=== PATIENT | male | born 1985 ===

== ENCOUNTER 2016-09-11 07:46 | Emergency (ER) | payer OTHER ==
--- NOTE | 2016-09-11 08:26 | ED NURSING NOTES ---
Clinical Report - Nurses [place] [address] [place] [address] 09/11/2016 7:47 [id number] Triage time 07:49. Acuity: LEVEL 3. Chief Complaint: INJURY TO LEFT FOOT. JD COMA SCORE: Jd Coma Scale: 15- eyes open spontaneously (4); best verbal response- oriented x 4 (5); best motor response- obeys commands (6). --08:03 Claudia Evans R.N. 07:49 09/11/16. BP: 108/72. HR: 81. RR: 22. O2 saturation: 100% on room air. Temp: 97.8 F (oral). Pain level now: 03/23. --08:03 Claudia Evans R.N. Weight: 86.1 kg. Height/Length: 69 inches. BMI: 28.1. --07:54 Claudia Evans R.N. Medications None. --07:55 Claudia Evans R.N. Medication/allergy information source: the patient. --08:03 Claudia Evans R.N. Allergies No Known Drug Allergy. --07:56 Claudia Evans R.N. History Arrived by private vehicle. Historian: patient. Accompanied by friend. Primary physician (none). This occurred just prior to arrival. Occurred at work. Mechanism of injury: a blow (runover by a forklift). ( eat:0600; drink - 0600). He has had trouble walking. 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 PAST MEDICAL HX: Last tetanus: (maybe more than a year). Tetanus immunization status is not unknown. SOCIAL HX: Smoker- current status unknown (no). Occasional alcohol use. No drug use. FALL RISK ASSESSMENT: Fall risk assessment completed. No fall risk identified. FUNCTIONAL ASSESSMENT: Functional assessment performed: independent with the activities of daily living; mobility impairment present- this mobility impairment is a new problem. LEARNING NEEDS ASSESSMENT: A learning needs assessment was performed. Factors affecting the patient's ability to learn include communication / language barriers. --08:03 Claudia Evans R.N. PROBLEMS: no known problems. ADDITIONAL SURGERIES: no known surgeries. Assessment GENERAL / NEURO / PSYCH: The patient is awake and alert, appears in pain and is oriented and cooperative. He has good eye contact. RESPIRATORY: Respirations not labored. SKIN: Skin is warm and dry. --08:03 Claudia Evans R.N. Interventions ID band on patient. To treatment room. --08:03 Claudia Evans R.N. PHYSICAL ASSESSMENT 08:05 09/11/16. To room via wheelchair. Patient gowned. GENERAL / NEURO / PSYCH: Oriented X 4. Appears in pain and in distress. EXTREMITIES: Left foot: swelling and erythema. SKIN: Skin is warm and dry. Bruises noted. --08:05 Claudia Evans R.N. NURSING PROGRESS NOTES 08:06 09/11/16. Cold pack applied. Extremity elevated. Call light placed in reach. Side rails up x 1. Bed placed in lowest position. Brakes of bed on. --08:06 Claudia Evans R.N. 08:06 09/11/16. Portable x-ray performed. --08:06 Claudia Evans R.N. 08:09 09/11/2016 Site #1 started via IV in the left forearm with an 20g angiocath; one attempt. Blood drawn: rainbow set. Labeled in the presence of the patient and sent to the lab. Saline lock flushed with 10 mL saline. --08:14 Amberly Randall R.N. 09:00 09/11/2016 Toradol IVP 30 mg given over 2 minute(s) via site #1. Allergies verified and confirmed 5 rights. IV patency established. IV site checked: no pain, redness, or swelling. IV flushed thoroughly pre- and post-medication administration. IVP given by RN. --09:10 Claudia Evans R.N. 09:03 09/11/2016 Dilaudid (HYDROmorphone HCl PF) IVP 0.5 mg given over 1 minute(s) via site #1. Allergies verified, confirmed 5 rights and sedative warning given to the patient. IV patency established. IV site checked: no pain, redness, or swelling. IV flushed thoroughly pre- and post-medication administration. IVP given by RN (pt initially refused this med because he was going to have to ddrive home from the workplace, after further conversation with his coworker, he decided to take it and have someone pick him up from work). --09:13 Claudia Evans R.N. 09:05 09/11/2016 Site #1 removed upon discharge. Catheter intact. Bandaid applied. --09:13 Claudia Evans R.N. 09:05. The patient is calm. Overall patient status is the same- he states feels the same. GENERAL / NEURO / PSYCH: Alert. Oriented X 4. RESPIRATORY: No respiratory distress. CVS: Capillary refill less than 2 seconds. SKIN: Skin is warm and dry. --09:18 Claudia Evans R.N. 09:05 language line was used twice at the bedside, for this pt. --09:18 Claudia Evans R.N. 09:05 09/11/2016 IV Saline Lock Drip IV Discontinued: upon discharge. --09:19 Claudia Evans R.N. DISPOSITION / DISCHARGE Departure time: 904. Condition at departure: improved and stable. Fall risk assessment completed. Risk factors identified include patient impairment of mobility. No learning barriers present. Discharge instructions provided and reviewed with the patient. Reviewed medication(s). Prescription(s) given to the patient. Work note given. Patient verbalized understanding. Written instructions provided in [place] and [place]. The patient was discharged home and accompanied by applied exercise physiologist. He left the Emergency Department ambulatory and via private vehicle. Manager Room driving. --09:16 Claudia Evans R.N. 09:05 09/11/16. BP: 126/69. HR: 73. RR: 16. O2 saturation: 96% on room air. Pain level now: 10/21. --09:16 Claudia Evans R.N. Locked/Released at 09/11/2016 9:19 by Claudia Evans R.N.
--- NOTE | 2016-09-11 08:26 | ED CLINICAL REPORT ---
Clinical Report - Physicians/Mid Levels [place] [address] [place] [address] 09/11/2016 7:47 Patient: COSMO ROCHE Time Seen: 07:53. Arrived- By private vehicle. Historian- patient. HISTORY OF PRESENT ILLNESS Chief Complaint: Injury to the left foot. The injury happened just prior to arrival. The patient sustained a crush injury (forklift ran over foot). Occurred at work. Patient is experiencing moderate pain. No other injury. REVIEW OF SYSTEMS The patient complains of pain on weight bearing. He has had swelling. No tingling, weakness, numbness, suspected foreign body or skin laceration. All systems otherwise negative, except as recorded above. PAST HISTORY Problems: no known problems. Additional Surgeries: no known surgeries. Medications: None. Allergies: No Known Drug Allergy. SOCIAL HISTORY Never smoker. No alcohol use or drug use. ADDITIONAL NOTES The nursing notes have been reviewed. PHYSICAL EXAM Appearance: Alert. Oriented X3. No acute distress. Head: Head atraumatic. Eyes: Pupils equal, round and reactive to light. Eyes normal inspection. ENT: Nose normal. Neck: Normal inspection. CVS: Pulses normal. Respiratory: No respiratory distress. Back: ROM normal. Skin: Skin intact. Skin warm and dry. Extremities: Left foot: moderate tenderness and swelling and small ecchymosis of the dorsal medial aspect of the mid foot. Limited weight bearing secondary to pain. Neurovascular intact distally. No laceration, abrasion, puncture wound, foreign body or deformity. No ankle injury. Foot and ankle exam otherwise negative. Extremities otherwise negative. Neuro, Vascular and Tendons: Vascular status intact. Sensation intact. Motor intact. Tendon function intact. Gait: Gait not tested due to pain. Neuro: No motor deficit. No sensory deficit. (Grossly oriented.). LABS, X-RAYS, AND EKG Lt Foot X-ray: No fracture. Normal alignment. No bony lesion, air in the soft tissue or foreign body. Joint spaces normal. Soft tissue swelling. Views: 3 view foot series. Technique: good. The X-rays were independently viewed by me and interpreted contemporaneously by me. Prior films were not available for comparison. Pulse Oximetry: 09/11/2016 07:49 O2 saturation: 100%. (FIO2 - room air). Interpretation: normal. PROGRESS AND PROCEDURES Course of Care: Pt was treated symptomatically, and x-ray was performed, showing no fracture. Pt was given crutches for comfort. Patient counseled in person regarding the patient's stable condition, test results, diagnosis and need for follow-up. Old medical records reviewed. Disposition: Discharged. CLINICAL IMPRESSION Contusion to the left foot. Crush injury to the left foot. INSTRUCTIONS Apply ice for 20 minutes three times a day as needed and until better. Don't apply ice directly to skin and don't use while asleep. Use crutches as needed and until better. Elevate affected areas above chest level as needed and until better. You may walk and bear weight as tolerated. Do not work (09/11-09/14). Warnings: GENERAL WARNINGS: Return or contact your physician immediately if your condition worsens or changes unexpectedly, if not improving as expected, or if other problems arise. Prescription Medications: Hydrocodone/APAP 5mg / 325mg: take 1-2 orally every 6 hours as needed for pain. Dispense fifteen (15). No refill. Follow-up: Follow up with your doctor as needed. Understanding of the discharge instructions verbalized by patient. (Electronically signed by Kary Lam MD 09/18/2016 10:10)
--- NOTE | 2016-09-11 08:26 | ED ORDER SUMMARY ---
..... Patient: COSMO ROCHE OrderSheet [facility] VisitID: [id number] [place] [address] 31y, M Registration Date/Time: 09/11/2016 ORDER SHEET Weight: 86.1 kg Allergies: No Known Drug Allergy GENERAL ORDERS: Foot 3V Left Urgent (07:53 09/11/2016 Nataly OATES) (Ack 8:03 OHernandez) (8:32 Herrera R.N.) Crutches (08:19 09/11/2016 Nataly OATES) (9:13 Herrera R.N.) MEDICATION ORDERS: IV FLUIDS: IV Saline Lock (08:13 09/11/2016 Vicky R.N. verbal order read back to Nataly OATES) (8:14 LShectorivan R.N.) Toradol IV 30 mg (NOW) (08:43 09/11/2016 Nataly OATES) (9:10 Herrera R.N.) Dilaudid IV 0.5 mg (HIGH ALERT MEDICATION, NOW) (08:43 09/11/2016 Nataly OATES) (9:13 Herrera R.N.) ORDER SHEET NOTES: [Electronically signed by Claudia Evans R.N. (09:19 09/11/2016)] [Electronically signed by Kary Lam MD (10:10 09/18/2016)] [Electronically locked/signed by Claudia Evans R.N. (09:19 09/11/2016)]
--- NOTE | 2016-09-11 08:26 | ED ORDER SUMMARY ---
..... Patient: COSMO ROCHE OrderSheet [facility] VisitID: [id number] [place] [address] 31y, M Registration Date/Time: 09/11/2016 ORDER SHEET Weight: 86.1 kg Allergies: No Known Drug Allergy GENERAL ORDERS: Foot 3V Left Urgent (07:53 09/11/2016 Nataly OATES) (Ack 8:03 OHernandez) (8:32 Herrera R.N.) Crutches (08:19 09/11/2016 Nataly OATES) (9:13 Herrera R.N.) MEDICATION ORDERS: IV FLUIDS: IV Saline Lock (08:13 09/11/2016 Vicky R.N. verbal order read back to Nataly OATES) (8:14 LShectorivan R.N.) Toradol IV 30 mg (NOW) (08:43 09/11/2016 Nataly OATES) (9:10 Herrera R.N.) Dilaudid IV 0.5 mg (HIGH ALERT MEDICATION, NOW) (08:43 09/11/2016 Nataly OATES) (9:13 Herrera R.N.) ORDER SHEET NOTES: [Electronically signed by Claudia Evans R.N. (09:19 09/11/2016)] [Electronically signed by Kary Lam MD (10:10 09/18/2016)] [Electronically locked/signed by Claudia Evans R.N. (09:19 09/11/2016)]
--- NOTE | 2016-09-11 08:26 | ED NURSING NOTES ---
Clinical Report - Nurses [place] [address] [place] [address] 09/11/2016 7:47 [id number] Triage time 07:49. Acuity: LEVEL 3. Chief Complaint: INJURY TO LEFT FOOT. JD COMA SCORE: Jd Coma Scale: 15- eyes open spontaneously (4); best verbal response- oriented x 4 (5); best motor response- obeys commands (6). --08:03 Claudia Evans R.N. 07:49 09/11/16. BP: 108/72. HR: 81. RR: 22. O2 saturation: 100% on room air. Temp: 97.8 F (oral). Pain level now: 03/23. --08:03 Claudia Evans R.N. Weight: 86.1 kg. Height/Length: 69 inches. BMI: 28.1. --07:54 Claudia Evans R.N. Medications None. --07:55 Claudia Evans R.N. Medication/allergy information source: the patient. --08:03 Claudia Evans R.N. Allergies No Known Drug Allergy. --07:56 Claudia Evans R.N. History Arrived by private vehicle. Historian: patient. Accompanied by friend. Primary physician (none). This occurred just prior to arrival. Occurred at work. Mechanism of injury: a blow (runover by a forklift). ( eat:0600; drink - 0600). He has had trouble walking. 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 PAST MEDICAL HX: Last tetanus: (maybe more than a year). Tetanus immunization status is not unknown. SOCIAL HX: Smoker- current status unknown (no). Occasional alcohol use. No drug use. FALL RISK ASSESSMENT: Fall risk assessment completed. No fall risk identified. FUNCTIONAL ASSESSMENT: Functional assessment performed: independent with the activities of daily living; mobility impairment present- this mobility impairment is a new problem. LEARNING NEEDS ASSESSMENT: A learning needs assessment was performed. Factors affecting the patient's ability to learn include communication / language barriers. --08:03 Claudia Evans R.N. PROBLEMS: no known problems. ADDITIONAL SURGERIES: no known surgeries. Assessment GENERAL / NEURO / PSYCH: The patient is awake and alert, appears in pain and is oriented and cooperative. He has good eye contact. RESPIRATORY: Respirations not labored. SKIN: Skin is warm and dry. --08:03 Claudia Evans R.N. Interventions ID band on patient. To treatment room. --08:03 Claudia Evans R.N. PHYSICAL ASSESSMENT 08:05 09/11/16. To room via wheelchair. Patient gowned. GENERAL / NEURO / PSYCH: Oriented X 4. Appears in pain and in distress. EXTREMITIES: Left foot: swelling and erythema. SKIN: Skin is warm and dry. Bruises noted. --08:05 Claudia Evans R.N. NURSING PROGRESS NOTES 08:06 09/11/16. Cold pack applied. Extremity elevated. Call light placed in reach. Side rails up x 1. Bed placed in lowest position. Brakes of bed on. --08:06 Claudia Evans R.N. 08:06 09/11/16. Portable x-ray performed. --08:06 Claudia Evans R.N. 08:09 09/11/2016 Site #1 started via IV in the left forearm with an 20g angiocath; one attempt. Blood drawn: rainbow set. Labeled in the presence of the patient and sent to the lab. Saline lock flushed with 10 mL saline. --08:14 Amberly Randall R.N. 09:00 09/11/2016 Toradol IVP 30 mg given over 2 minute(s) via site #1. Allergies verified and confirmed 5 rights. IV patency established. IV site checked: no pain, redness, or swelling. IV flushed thoroughly pre- and post-medication administration. IVP given by RN. --09:10 Claudia Evans R.N. 09:03 09/11/2016 Dilaudid (HYDROmorphone HCl PF) IVP 0.5 mg given over 1 minute(s) via site #1. Allergies verified, confirmed 5 rights and sedative warning given to the patient. IV patency established. IV site checked: no pain, redness, or swelling. IV flushed thoroughly pre- and post-medication administration. IVP given by RN (pt initially refused this med because he was going to have to ddrive home from the workplace, after further conversation with his coworker, he decided to take it and have someone pick him up from work). --09:13 Claudia Evans R.N. 09:05 09/11/2016 Site #1 removed upon discharge. Catheter intact. Bandaid applied. --09:13 Claudia Evans R.N. 09:05. The patient is calm. Overall patient status is the same- he states feels the same. GENERAL / NEURO / PSYCH: Alert. Oriented X 4. RESPIRATORY: No respiratory distress. CVS: Capillary refill less than 2 seconds. SKIN: Skin is warm and dry. --09:18 Claudia Evans R.N. 09:05 language line was used twice at the bedside, for this pt. --09:18 Claudia Evans R.N. 09:05 09/11/2016 IV Saline Lock Drip IV Discontinued: upon discharge. --09:19 Claudia Evans R.N. DISPOSITION / DISCHARGE Departure time: 904. Condition at departure: improved and stable. Fall risk assessment completed. Risk factors identified include patient impairment of mobility. No learning barriers present. Discharge instructions provided and reviewed with the patient. Reviewed medication(s). Prescription(s) given to the patient. Work note given. Patient verbalized understanding. Written instructions provided in [place] and [place]. The patient was discharged home and accompanied by esol teacher. He left the Emergency Department ambulatory and via private vehicle. Bank Boss driving. --09:16 Claudia Evans R.N. 09:05 09/11/16. BP: 126/69. HR: 73. RR: 16. O2 saturation: 96% on room air. Pain level now: 10/21. --09:16 Claudia Evans R.N. Locked/Released at 09/11/2016 9:19 by Claudia Evans R.N.
--- NOTE | 2016-09-11 10:52 | DIAGNOSTIC IMAGING REPORT ---
PROCEDURE: XR FOOT 3 VIEWS - LEFT INDICATION: TRAUMA/INJURY TECHNIQUE: Three views. COMPARISON: None. FINDINGS: Osseous structures and joint spaces are normal. IMPRESSION: 1. Normal left foot.
--- NOTE | 2016-09-18 10:10 | ED MAR SUMMARY ---
..... Medication Administration Record [facility] [address] [place] [address] Patient: COSMO ROCHE Visit ID: [id number] 31y, M Weight: 86.1 kg Height/Length: 69 in BMI: 28.1 ALLERGIES: No Known Drug Allergy Given 09:00 09/11/2016 Claudia Evans, RChristenN. Medication Administered: TORADOL [IVP], Dose: 30 mg IVP over 2 minute(s), Site: #1 left forearm. Medication Ordered: Toradol IV 30 mg (NOW). Given 09:03 09/11/2016 Claudia Evans, R.N. Medication Administered: DILAUDID [IVP] (HYDROMORPHONE HCL PF), Dose: 0.5 mg IVP over 1 minute(s), Site: #1 left forearm. Medication Ordered: Dilaudid IV 0.5 mg (HIGH ALERT MEDICATION, NOW).
--- NOTE | 2016-09-18 10:10 | ED MED RECONCILIATION SUMMARY ---
Patient: FINESSE ROCHEOLFO Medication Reconciliation Report [facility] VisitID: [id number] [address] [place] [address] 31y, M Registration Date/Time: 09/11/2016 Weight: 86.1 kg Height/Length: 69 in. BMI: 28.1 ALLERGIES: No Known Drug Allergy The patient's Home Medications are listed below: NONE. The source(s) of the original Home Medication information: patient The following Medications were given to the patient in the Emergency Department: Toradol [IVP] IVP 30 mg, administered: 09/11/2016 9:00:00 AM Dilaudid [IVP] IVP 0.5 mg, administered: 09/11/2016 9:03:00 AM The following Medications were prescribed to the patient: Hydrocodone/APAP 5mg / 325mg: take 1-2 orally every 6 hours as needed for pain. Dispense fifteen (15). No refill. -- Kary Lam MD
--- NOTE | 2016-09-18 10:10 | ED MAR SUMMARY ---
..... Medication Administration Record [facility] [address] [place] [address] Patient: COSMO ROCHE Visit ID: [id number] 31y, M Weight: 86.1 kg Height/Length: 69 in BMI: 28.1 ALLERGIES: No Known Drug Allergy Given 09:00 09/11/2016 Claudia Evans, RChristenN. Medication Administered: TORADOL [IVP], Dose: 30 mg IVP over 2 minute(s), Site: #1 left forearm. Medication Ordered: Toradol IV 30 mg (NOW). Given 09:03 09/11/2016 Claudia Evans, R.N. Medication Administered: DILAUDID [IVP] (HYDROMORPHONE HCL PF), Dose: 0.5 mg IVP over 1 minute(s), Site: #1 left forearm. Medication Ordered: Dilaudid IV 0.5 mg (HIGH ALERT MEDICATION, NOW).
--- NOTE | 2016-09-18 10:10 | ED DISCHARGE INSTRUCTIONS ---
Patient: COSMO ROCHE General Instructions [facility] VisitID: [id number] [place] [address] 31y, M Registration Date/Time: 09/11/2016 Contusion to the left foot. Crush injury to the left foot. INSTRUCTIONS Apply ice for 20 minutes three times a day as needed and until better. Don't apply ice directly to skin and don't use while asleep. Use crutches as needed and until better. Elevate affected areas above chest level as needed and until better. You may walk and bear weight as tolerated. Do not work (09/11-09/14). Warnings: GENERAL WARNINGS: Return or contact your physician immediately if your condition worsens or changes unexpectedly, if not improving as expected, or if other problems arise. Prescription Medications: Hydrocodone/APAP 5mg / 325mg: take 1-2 orally every 6 hours as needed for pain. Dispense fifteen (15). No refill. Follow-up: Follow up with your doctor as needed. Understanding of the discharge instructions verbalized by patient. ADDITIONAL INFORMATION Contusion: Foot You have a CONTUSION of your foot. This causes local pain, swelling and sometimes bruising. There are no broken bones. This injury may take from a few days to a few weeks to heal. Home Care: 1) Keep your LEG elevated to reduce pain and swelling. This is very important during the first 48 hours. If walking causes pain, stay off the injured leg until you can walk without pain. 2) If CRUTCHES have been advised, do not bear full weight on the injured leg until you can do so without pain. You may return to sports when you are able to hop and run on the injured leg without pain. 3) Make an ice pack (ice cubes in a plastic bag, wrapped in a towel) and apply for 20 minutes every 1-2 hours the first day. Continue this 3-4 times a day until the swelling goes down. 4) You may use acetaminophen (Tylenol) or ibuprofen (Motrin, Advil) to control pain, unless another pain medicine was prescribed. [ NOTE : If you have chronic liver or kidney disease or ever had a stomach ulcer or GI bleeding, talk with your doctor before using these medicines.] Follow Up with your doctor or this facility if you are not starting to improve within the next THREE days. [NOTE: If X-rays were taken, they will be reviewed by a radiologist. You will be notified of any new findings that may affect your care.] Get Prompt Medical Attention if any of the following occur: -- Pain or swelling increases -- Toes become cold, blue, numb or tingly -- Redness, warmth or drainage from the skin Crush Injury, Foot (No Fx) A crush injury to your foot causes local pain, swelling, and sometimes bruising. There are no broken bones. This injury takes from a few days to a few weeks to heal. If the toenail has been severely injured, it may fall off in 12 weeks. A new one will usually start to grow back within a month. Home care The following guidelines will help you care for your wound at home: You may be given a splint, cast, shoe, or boot to prevent movement at the injury. Unless you were told otherwise, use crutches or a walker anddo notbear weight on the injured foot until cleared by your doctor to do so. (Crutches and walkers can be rented at many pharmacies and surgical/orthopedic supply stores). Do not put weight on a splint; it will break. Keep your leg elevated to reduce pain and swelling. When sleeping, place a pillow under the injured leg. When sitting, support the injured leg so it is level with your waist. This is very important during the first 48 hours. Apply an ice pack (ice cubes in a plastic bag, wrapped in a towel) over the injured area for 20 minutes every 12 hours the first day for pain relief. Continue this 34 times a day until the pain and swelling goes away. You may use acetaminophen or ibuprofen to control pain, unless another pain medicine was prescribed.If you have chronic liver or kidney disease or ever had a stomach ulcer or GI bleeding, talk with your doctor before using these medicines. Keep the splint/cast/boot/shoe dry. When bathing, protect it with a large plastic bag, rubber-banded at the top end. If a fiberglass splint/cast or boot gets wet, you can dry it with a hair-dryer. Unless told otherwise, you can remove a boot or shoe to bathe. If your injury includes exposed cuts or scrapes, clean these daily with soap and water. Apply antibiotic ointment. Watch for the signs of infection listed below. Follow-up care Follow up with your doctor as advised. Return sooner if you are not starting to improve within the nextthreedays. If you were given a splint, it may be changed to a cast or boot at your follow-up visit. Note:X-rays will be reviewed by a radiologist. You will be notified of any new findings that may affect your care. When to seek medical care Get prompt medical attention if any of the following occur: The plaster cast or splint becomes wet or soft The fiberglass cast or splint remains wet for more than 24 hours Increased tightness or pain under the cast or splint Toes become swollen, cold, blue, numb, or tingly Redness, warmth, swelling, drainage from the wound, or foul odor from a cast or splint Fever of 100.4F(38C) or higher, or as directed by your health care provider You have been given the following additional information: Contusion, Foot Crush Injury, Foot/Toe You may walk and bear weight as tolerated. Do not work (09/11-09/14). (Electronically signed by Kary Lma MD 09/18/2016 10:10)
--- NOTE | 2016-09-18 10:10 | ED MED RECONCILIATION SUMMARY ---
Patient: FINESSE ROCHEOLFO Medication Reconciliation Report VisitID: [id number] [address] [place] [address] 31y, M Registration Date/Time: 09/11/2016 Weight: 86.1 kg Height/Length: 69 in. BMI: 28.1 ALLERGIES: No Known Drug Allergy The patient's Home Medications are listed below: NONE. The source(s) of the original Home Medication information: patient The following Medications were given to the patient in the Emergency Department: Toradol [IVP] IVP 30 mg, administered: 09/11/2016 9:00:00 AM Dilaudid [IVP] IVP 0.5 mg, administered: 09/11/2016 9:03:00 AM The following Medications were prescribed to the patient: Hydrocodone/APAP 5mg / 325mg: take 1-2 orally every 6 hours as needed for pain. Dispense fifteen (15). No refill. -- Kary Lam MD
== END 2016-09-11 09:00 | disposition home or self-care (01) ==
LOC: ED SRH 07:46
DX: S90.32XA Contusion of left foot, initial encounter (principal); S97.82XA Crushing injury of left foot, initial encounter; W24.0XXA Contact with lifting devices, not elsewhere classified, initial encounter; Y93.9 Activity, unspecified; Y92.9 Unspecified place or not applicable; Y99.0 Civilian activity done for income or pay

== ENCOUNTER 2016-09-28 08:10 | Emergency (ER) | payer OTHER ==
--- NOTE | 2016-09-28 09:15 | DIAGNOSTIC IMAGING REPORT ---
PROCEDURE: XR ANKLE 3 OR 4 VIEWS - LEFT INDICATION: TRAUMA/INJURY TECHNIQUE: Four views of the left ankle. COMPARISON: Correlation made to foot radiograph 09/11/2016 FINDINGS: Normal mineralization. Nondisplaced oblique transverse fracture through the medial malleolus. No visible lateral or posterior malleolar fracture. The ankle mortise remains intact. Moderate medial soft tissue swelling. No tibiotalar joint effusion. The Achilles tendon intact. IMPRESSION: 1. Nondisplaced medial malleolar fracture. 2. No evidence of other fracture or mortise disruption.
--- NOTE | 2016-09-28 09:16 | DIAGNOSTIC IMAGING REPORT ---
PROCEDURE: XR FOOT 3 VIEWS - LEFT INDICATION: TRAUMA/INJURY TECHNIQUE: Three views of the left foot. COMPARISON: 09/11/2016 FINDINGS: Normal mineralization. Nondisplaced to minimally distracted medial malleolar fracture better seen on the AP view. No other fractures. Minor degeneration at the first MTP joint. Dorsal spurring at the talonavicular articulation. No radiodense foreign bodies. IMPRESSION: 1. Nondisplaced to minimally displaced medial malleolar fracture.
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
--- NOTE | 2016-09-28 09:29 | ED NURSING NOTES ---
Clinical Report - Nurses [facility] [address] [place] [address] 09/28/2016 8:10 [id number] TRI[facility] Triage time 08:18. Acuity: LEVEL 4. Chief Complaint: LEFT LOWER EXTREMITY PAIN. 08:18 09/28/16. 08:18 09/28/16. Alert. No acute distress. ( Left foot pain. Pt was seen here for 11 SEPTEMBER with dx of foot contusion.). SEPSIS SCREEN: Sepsis Screen. Negative (no infection suspected/documented). JD COMA SCORE: Jd Coma Scale: 15- eyes open spontaneously (4); best verbal response- oriented x 4 (5); best motor response- obeys commands (6). --08:22 Scott Mayo R.N. 08:18 09/28/16. BP: 130/81. HR: 71. RR: 18. O2 saturation: 97% on room air. Temp: 98.5 F (rectal). --08:22 Scott Mayo R.N. Weight: 86.1 kg measured. Height/Length: 69 inches Measured. BMI: 28.1. --08:21 Scott Mayo R.N. Medications None. --08:22 Scott Mayo R.N. Medication/allergy information source: the patient. --08:22 Scott Mayo R.N. Allergies No Known Drug Allergy. --08:22 Scott Mayo R.N. History Arrived by private vehicle, and unaccompanied. Primary physician (NONE). 08:18 09/28/16. Injury occurred. He has had trouble walking. 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 PAST MEDICAL HX: Tetanus status: unknown. Immunizations: status is unknown. SOCIAL HX: Never smoker. No alcohol use or drug use. No infectious disease exposure. ABUSE ASSESSMENT: No report of abuse. FALL RISK ASSESSMENT: Fall risk assessment completed. No fall risk identified. NUTRITIONAL RISK ASSESSMENT: The nutritional risk assessment revealed no deficiencies. FUNCTIONAL ASSESSMENT: Functional assessment: no impairments noted. LEARNING NEEDS ASSESSMENT: The learning needs assessment revealed no barriers. SKIN INTEGRITY ASSESSMENT: Skin integrity risk assessment completed. No skin integrity risk identified. --08:22 Scott Mayo R.N. PAST MEDICAL HX: Tetanus status: unknown. Immunizations: status is unknown. --08:35 Scott Mayo R.N. 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 --08:36 Scott Mayo R.N. Primary physician (NONE). --08:36 Scott Mayo R.N. PROBLEMS: Crush Injury. Contusion. --08:22 Scott Mayo R.N. ADDITIONAL SURGERIES: no known surgeries. Assessment 08:18 09/28/16. --08:22 Scott Mayo R.N. Interventions 08:18 09/28/16. 08:18 09/28/16. ID and allergy band on patient. To treatment room. --08:22 Scott Mayo R.N. PHYSICAL ASSESSMENT 08:09/28/16. GENERAL / NEURO / PSYCH: Oriented X 4. Alert. Appears in no acute distress. EXTREMITIES: Extremity pulses are within normal limits. Abnormal gait. Neuro-vascular status intact to the extremity. No lower extremity edema. Left ankle: tenderness. SKIN: Skin is warm and dry. --08:22 Scott Mayo R.N. NURSING PROGRESS NOTES 08:09/28/16. Call light placed in reach. Side rails up x 2. Bed placed in lowest position. Brakes of bed on. --08:23 Scott Mayo R.N. 08:09/28/16. Patient ready for evaluation- chart flagged and notification provided. --08:23 Scott Mayo R.N. 08:23 09/28/16. ( Language line being connected at this time, pt can speak minimal Syriac). --08:23 Scott Mayo R.N. 08:37 09/28/16. ( Translation completed over phone, all questions answered, pt updated on POC). --08:37 Scott Mayo R.N. 08:39 09/28/16. ( Gave Ice to patient). --08:39 Scott Mayo R.N. 08:42 09/28/2016 Motrin PO 800 mg given. Allergies verified and confirmed 5 rights. --08:42 Scott Mayo R.N. 09:02 09/28/16. ( X-ray completed). --09:02 Scott Mayo R.N. 09:02 09/28/16. Patient waiting for disposition. --09:02 Scott Mayo R.N. Stirrup posterior fiberglass lower extremity splint applied to left leg, ankle and foot by tech. --09:39 Jess Haynes, ER Tech1 ( pt. states he has his own crutches at home.). --09:41 Jess Haynes, ER Tech1. DISPOSITION / DISCHARGE 09:57 09/28/16. The goals identified in the patient's plan of care were met. ( Language line used to DC patient). No learning barriers present. Discharge instructions provided and reviewed with the patient. Reviewed warnings. Reviewed medication(s). Treatments reviewed. Reviewed referral to an orthopedic surgeon. Patient verbalized understanding. Written instructions provided in Syriac and Gambian (used translation line as well to clarify). The patient was discharged by the physician. He was discharged home and unaccompanied at time of discharge. He left the Emergency Department ambulatory and via private vehicle. FALL RISK ASSESSMENT: Fall risk assessment completed. No fall risk identified. --09:57 Scott Mayo R.N. 09:56 09/28/16. BP: 132/70. HR: 80. RR: 12. O2 saturation: 99% on room air. Temp: 98.1 F (oral). --09:57 Scott Mayo R.N. 10:05 09/28/16. Departure time: 10:05. The patient left the Emergency Department in a wheelchair. --10:05 Scott Mayo R.N. 10:07 09/28/16. --10:07 Scott Mayo R.N. 10:07 09/28/16. Pain level now: 07/24. --10:07 Scott Mayo R.N. Locked/Released at 09/28/2016 10:07 by Scott Mayo R.N.
--- NOTE | 2016-09-28 09:29 | ED NURSING NOTES ---
Clinical Report - Nurses [facility] [address] [place] [address] 09/28/2016 8:10 [id number] TRI[facility] Triage time 08:18. Acuity: LEVEL 4. Chief Complaint: LEFT LOWER EXTREMITY PAIN. 08:18 09/28/16. 08:18 09/28/16. Alert. No acute distress. ( Left foot pain. Pt was seen here for 11 SEPTEMBER with dx of foot contusion.). SEPSIS SCREEN: Sepsis Screen. Negative (no infection suspected/documented). JD COMA SCORE: Jd Coma Scale: 15- eyes open spontaneously (4); best verbal response- oriented x 4 (5); best motor response- obeys commands (6). --08:22 Scott Mayo R.N. 08:18 09/28/16. BP: 130/81. HR: 71. RR: 18. O2 saturation: 97% on room air. Temp: 98.5 F (rectal). --08:22 Scott Mayo R.N. Weight: 86.1 kg measured. Height/Length: 69 inches Measured. BMI: 28.1. --08:21 Scott Mayo R.N. Medications None. --08:22 Scott Mayo R.N. Medication/allergy information source: the patient. --08:22 Scott Mayo R.N. Allergies No Known Drug Allergy. --08:22 Scott Mayo R.N. History Arrived by private vehicle, and unaccompanied. Primary physician (NONE). 08:18 09/28/16. Injury occurred. He has had trouble walking. 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 PAST MEDICAL HX: Tetanus status: unknown. Immunizations: status is unknown. SOCIAL HX: Never smoker. No alcohol use or drug use. No infectious disease exposure. ABUSE ASSESSMENT: No report of abuse. FALL RISK ASSESSMENT: Fall risk assessment completed. No fall risk identified. NUTRITIONAL RISK ASSESSMENT: The nutritional risk assessment revealed no deficiencies. FUNCTIONAL ASSESSMENT: Functional assessment: no impairments noted. LEARNING NEEDS ASSESSMENT: The learning needs assessment revealed no barriers. SKIN INTEGRITY ASSESSMENT: Skin integrity risk assessment completed. No skin integrity risk identified. --08:22 Scott Mayo R.N. PAST MEDICAL HX: Tetanus status: unknown. Immunizations: status is unknown. --08:35 Scott Mayo R.N. 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 --08:36 Scott Mayo R.N. Primary physician (NONE). --08:36 Scott Mayo R.N. PROBLEMS: Crush Injury. Contusion. --08:22 Scott Mayo R.N. ADDITIONAL SURGERIES: no known surgeries. Assessment 08:18 09/28/16. --08:22 Scott Mayo R.N. Interventions 08:18 09/28/16. 08:18 09/28/16. ID and allergy band on patient. To treatment room. --08:22 Scott Mayo R.N. PHYSICAL ASSESSMENT 08:09/28/16. GENERAL / NEURO / PSYCH: Oriented X 4. Alert. Appears in no acute distress. EXTREMITIES: Extremity pulses are within normal limits. Abnormal gait. Neuro-vascular status intact to the extremity. No lower extremity edema. Left ankle: tenderness. SKIN: Skin is warm and dry. --08:22 Scott Mayo R.N. NURSING PROGRESS NOTES 08:09/28/16. Call light placed in reach. Side rails up x 2. Bed placed in lowest position. Brakes of bed on. --08:23 Scott Mayo R.N. 08:09/28/16. Patient ready for evaluation- chart flagged and notification provided. --08:23 Scott Mayo R.N. 08:23 09/28/16. ( Language line being connected at this time, pt can speak minimal Slovenian). --08:23 Scott Mayo R.N. 08:37 09/28/16. ( Translation completed over phone, all questions answered, pt updated on POC). --08:37 Scott Mayo R.N. 08:39 09/28/16. ( Gave Ice to patient). --08:39 Scott Mayo R.N. 08:42 09/28/2016 Motrin PO 800 mg given. Allergies verified and confirmed 5 rights. --08:42 Scott Mayo R.N. 09:02 09/28/16. ( X-ray completed). --09:02 Scott Mayo R.N. 09:02 09/28/16. Patient waiting for disposition. --09:02 Scott Mayo R.N. Stirrup posterior fiberglass lower extremity splint applied to left leg, ankle and foot by tech. --09:39 Jess Haynes, ER Tech1 ( pt. states he has his own crutches at home.). --09:41 Jess Haynes, ER Tech1. DISPOSITION / DISCHARGE 09:57 09/28/16. The goals identified in the patient's plan of care were met. ( Language line used to DC patient). No learning barriers present. Discharge instructions provided and reviewed with the patient. Reviewed warnings. Reviewed medication(s). Treatments reviewed. Reviewed referral to an orthopedic surgeon. Patient verbalized understanding. Written instructions provided in Slovenian and Sao Tomean (used translation line as well to clarify). The patient was discharged by the physician. He was discharged home and unaccompanied at time of discharge. He left the Emergency Department ambulatory and via private vehicle. FALL RISK ASSESSMENT: Fall risk assessment completed. No fall risk identified. --09:57 Scott Mayo R.N. 09:56 09/28/16. BP: 132/70. HR: 80. RR: 12. O2 saturation: 99% on room air. Temp: 98.1 F (oral). --09:57 Scott Mayo R.N. 10:05 09/28/16. Departure time: 10:05. The patient left the Emergency Department in a wheelchair. --10:05 Scott Mayo R.N. 10:07 09/28/16. --10:07 Scott Mayo R.N. 10:07 09/28/16. Pain level now: 07/24. --10:07 Scott Mayo R.N. Locked/Released at 09/28/2016 10:07 by Scott Mayo R.N.
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
--- NOTE | 2016-09-28 09:29 | ED ORDER SUMMARY ---
..... Patient: COSMO ROCHE OrderSheet [facility] VisitID: [id number] [place] [address] 31y, M Registration Date/Time: 09/28/2016 ORDER SHEET Weight: 86.1 kg (measured) Allergies: No Known Drug Allergy GENERAL ORDERS: Foot 3V Left Urgent (08:38 09/28/2016 Poonam Jimenez) (Ack 8:43 PWeiler ER Tech1) (9:02 JBoardley R.N.) Ice (08:39 09/28/2016 Poonam Jimenez) (8:39 JBoardley R.N.) Ankle 3 or 4V Left Urgent (08:47 09/28/2016 Poonam Jimenez) (Ack 8:48 PWeiler ER Tech1) (9:02 JBoardley R.N.) Splint (LE) (Left) (Short Leg Posterior, [place]) (09:23 09/28/2016 Poonam Jimenez) (Ack 9:26 JBoardley R.N.) (9:38 LNations ER Tech1) MEDICATION ORDERS: Motrin PO 800 mg (NOW) (08:38 09/28/2016 Poonam Jimenez) (Ack 8:39 JBoardley R.N.) (8:42 JBoardley R.N.) IV FLUIDS: ORDER SHEET NOTES: [Electronically signed by Sukh Dominguez Dr. (09:42 09/28/2016)] [Electronically signed by Scott Mayo R.N. (10:07 09/28/2016)] [Electronically locked/signed by Scott Mayo R.N. (10:09/28/2016)]
--- NOTE | 2016-09-28 09:29 | ED ORDER SUMMARY ---
..... Patient: COSMO ROCHE OrderSheet [facility] VisitID: [id number] [place] [address] 31y, M Registration Date/Time: 09/28/2016 ORDER SHEET Weight: 86.1 kg (measured) Allergies: No Known Drug Allergy GENERAL ORDERS: Foot 3V Left Urgent (08:38 09/28/2016 Poonam Jimenez) (Ack 8:43 PWeiler ER Tech1) (9:02 JBoardley R.N.) Ice (08:39 09/28/2016 Poonam Jimenez) (8:39 JBoardley R.N.) Ankle 3 or 4V Left Urgent (08:47 09/28/2016 Poonam Jimenez) (Ack 8:48 PWeiler ER Tech1) (9:02 JBoardley R.N.) Splint (LE) (Left) (Short Leg Posterior, Sugar [place]) (09:23 09/28/2016 Poonam Jimenez) (Ack 9:26 JBoardley R.N.) (9:38 LNations ER Tech1) MEDICATION ORDERS: Motrin PO 800 mg (NOW) (08:38 09/28/2016 Poonam Jimenez) (Ack 8:39 JBoardley R.N.) (8:42 JBoardley R.N.) IV FLUIDS: ORDER SHEET NOTES: [Electronically signed by Sukh Dominguez Dr. (09:42 09/28/2016)] [Electronically signed by Scott Mayo R.N. (10:07 09/28/2016)] [Electronically locked/signed by Scott Mayo R.N. (10:09/28/2016)]
--- NOTE | 2016-09-28 10:07 | ED MAR SUMMARY ---
..... Medication Administration Record [facility] [address] [place] [address] Patient: COSMO ROCHE Visit ID: [id number] 31y, M Weight: 86.1 kg Height/Length: 69 in BMI: 28.1 ALLERGIES: No Known Drug Allergy Given 08:42 09/28/2016 Scott Mayo R.N. Medication Administered: MOTRIN [PO], Dose: 800 mg PO. Medication Ordered: Motrin PO 800 mg (NOW).
--- NOTE | 2016-09-28 10:07 | ED DISCHARGE INSTRUCTIONS ---
Patient: COSMO ROCHE General Instructions [facility] VisitID: [id number] [address] [place] [address] 31y, M Registration Date/Time: 09/28/2016 Closed displaced left medial malleolus fracture. INSTRUCTIONS Use crutches until released. Wear plaster splint until released. No weight bearing left leg until released. Do not work until released. Your Current Medications: CONTINUE TAKING THE FOLLOWING MEDICATIONS: None*. Prescription Medications: Hydrocodone/APAP 5mg / 325mg: take 1 orally every 6 hours as needed for pain. Dispense twenty (20). No refill. Follow-up: Screening today revealed the patient's blood pressure to be in the pre-hypertensive range. The patient should follow up with a primary care provider for blood pressure management. Follow-up with: [facility], , [address], [place], [id number] Follow up tomorrow. Call for an appointment. ADDITIONAL INFORMATION Fracture:Ankle You have a break (fracture) of the ankle. This causes local pain, swelling and sometimes bruising. A fracture is treated with a splint or cast or special boot. It will take about 4-6 weeks for the fracture to heal. Surgery may be needed to fix severe injuries. Home Care: You will be given a splint, cast or boot to prevent movement at the ankle joint. Unless you were told otherwise, use crutches or a walker and do not bear weight on the injured leg until cleared by your doctor to do so. (Crutches and walkers can be rented at many pharmacies and surgical/orthopedic supply stores). Do not put weight on a splint; it will break. Keep your leg elevated to reduce pain and swelling. When sleeping, place a pillow under the injured leg. When sitting, support the injured leg so it is level with your waist. This is very important during the first 48 hours. Apply an ice pack (ice cubes in a plastic bag, wrapped in a towel) over the injured area for 20 minutes every 1-2 hours the first day. You can place the ice pack directly over the splint/cast. Continue with ice packs 3-4 times a day for the next two days, then as needed for the relief of pain and swelling. Keep the cast/splint/boot completely dry at all times. Bathe with your cast/splint/boot out of the water, protected with a large plastic bag, rubber-banded at the top end. If a boot or fiberglass cast/splint gets wet, you can dry it with a hair-dryer. You may use acetaminophen (Tylenol) or ibuprofen (Motrin, Advil) to control pain, unless another pain medicine was prescribed. [ NOTE : If you have chronic liver or kidney disease or ever had a stomach ulcer or GI bleeding, talk with your doctor before using these medicines.] Follow Up with your doctor in one week, or as advised by our staff, to be sure the bone is healing properly. If you were given a splint, it may be changed to a cast at your follow-up visit. [NOTE: A radiologist will review any X-rays that were taken. We will notify you of any new findings that may affect your care.] Get Prompt Medical Attention If Any Of The Following Occur: The plaster cast or splint becomes wet or soft The fiberglass cast or splint remains wet for more than 24 hours Increased tightness or pain under the cast or splint Toes become swollen, cold, blue, numb or tingly Crutch Walking Crutch Adjustment Make sure the crutches you use are adjusted to fit you. When you stand, there should be room to fit 2-3 fingers between the top of the crutch and your armpit. Your elbow should be slightly bent when holding the hand homebirth midwife. Crutch Walking: Place the crutches forward 12" in front of and 6" to the side of your feet. Lean your weight forward as you push down on the handgrips. Your weight should be on your hands and yourstrong leg, not your armpits . Let your body swing through, landing on the strong leg. Advance the crutches forward again. The crutch and the injured leg should move together. Going Up Steps: ("Up with the good") With both crutches on the same step as your feet, push down on the handgrips. Balancing with very light pressure on the weak leg, let your hands support your weight as you raise your strong leg onto the next higher step. Transfer all your weight to your strong leg (still bent) as you move the crutches up to the next step alongside the strong leg. With your weight evenly balanced on the two crutches and your strong leg, straighten your strong knee as you raise the weak leg up to the next step. Going Down Steps: ("Down with the bad") With both crutches on the same step as your feet, push down on the handgrips. With your weight evenly balanced on the two crutches and your strong leg, bend your strong knee as you lower the weak leg down to the next step. Let your strong leg support you (still bent) as you move the crutches down alongside the weak leg. Transfer your weight to your hands, balancing with very light pressure on the weak leg as you lower your strong leg alongside your weak leg. Splint Care, Fiberglass The following will help you care for your splint: It will take up totwo hours for your fiber glass splint to fully harden; therefore, do notapply any pressure on it during that time or else it may break. To prevent swelling under the splint, for thefirst 48 hours: If the splint is on yourarm, keep it in a sling or raised to shoulder level when sitting or standing; rest it on your chest or on a pillow at your side when lying down. If the splint is on yourfoot, keep it propped up above the level of your waist when sitting or lying. Avoid crutch walking as much as possible during this time. Keep the splint/cast dry at all times. Bathe with your splint/cast well out of the water, protected with a large plastic bag, rubber-banded at the top end. If a fiberglass cast or splint gets wet, you can dry it with a hair-dryer. Follow-up care Follow up with your doctor or this facility as advised. When to seek medical care Get prompt medical attention if any of the following occur: Bad odor from the splint or wound-fluid stains the splint The splint cracks or remains wet over 24 hours Increasing tightness or pressure under the splint Fingers or toes become swollen, cold, blue, numb or tingly Increased pain under the splint Hydrocodone Bitartrate, Acetaminophen Oral tablet What is this medicine? ACETAMINOPHEN; HYDROCODONE (a set a NINOSKA charmaine fen; shanell droe KOE done) is a pain reliever. It is used to treat mild to moderate pain. How should I use this medicine? Take this medicine by mouth. Swallow it with a full glass of water. Follow the directions on the prescription label. If the medicine upsets your stomach, take the medicine with food or milk. Do not take more than you are told to take. Talk to your application packager regarding the use of this medicine in children. This medicine is not approved for use in children. What side effects may I notice from receiving this medicine? Side effects that you should report to your doctor or health director day care center as soon as possible: allergic reactions like skin rash, itching or hives, swelling of the face, lips, or tongue breathing problems confusion feeling faint or lightheaded, falls stomach pain yellowing of the eyes or skin Side effects that usually do not require medical attention (report to your doctor or health director day care center if they continue or are bothersome): nausea, vomiting stomach upset What may interact with this medicine? alcohol antihistamines isoniazid medicines for depression, anxiety, or psychotic disturbances medicines for sleep muscle relaxants naltrexone narcotic medicines (opiates) for pain phenobarbital ritonavir tramadol What if I miss a dose? If you miss a dose, take it as soon as you can. If it is almost time for your next dose, take only that dose. Do not take double or extra doses. Where should I keep my medicine? Keep out of the reach of children. This medicine can be abused. Keep your medicine in a safe place to protect it from theft. Do not share this medicine with anyone. Selling or giving away this medicine is dangerous and against the law. Store at room temperature between 15 and 30 degrees C (59 and 86 degrees F). Protect from light. Keep container tightly closed. Throw away any unused medicine after the expiration date. Discard unused medicine and used packaging carefully. Pets and children can be harmed if they find used or lost packages. What should I tell my health care provider before I take this medicine? They need to know if you have any of these conditions: brain tumor Crohn's disease, inflammatory bowel disease, or ulcerative colitis drink more than 3 alcohol-containing drinks per day drug abuse or addiction head injury heart or circulation problems kidney disease or problems going to the bathroom liver disease lung disease, asthma, or breathing problems an unusual or allergic reaction to acetaminophen, hydrocodone, other opioid analgesics, other medicines, foods, dyes, or preservatives or trying to get breast-feeding What should I watch for while using this medicine? Tell your doctor or health director day care center if your pain does not go away, if it gets worse, or if you have new or a different type of pain. You may develop tolerance to the medicine. Tolerance means that you will need a higher dose of the medicine for pain relief. Tolerance is normal and is expected if you take the medicine for a long time. Do not suddenly stop taking your medicine because you may develop a severe reaction. Your body becomes used to the medicine. This does NOT mean you are addicted. Addiction is a behavior related to getting and using a drug for a non-medical reason. If you have pain, you have a medical reason to take pain medicine. Your doctor will tell you how much medicine to take. If your doctor wants you to stop the medicine, the dose will be slowly lowered over time to avoid any side effects. You may get drowsy or dizzy when you first start taking the medicine or change doses. Do not drive, use machinery, or do anything that may be dangerous until you know how the medicine affects you. Stand or sit up slowly. There are different types of narcotic medicines (opiates) for pain. If you take more than one type at the same time, you may have more side effects. Give your health care provider a list of all medicines you use. Your doctor will tell you how much medicine to take. Do not take more medicine than directed. Call emergency for help if you have problems breathing. The medicine will cause constipation. Try to have a bowel movement at least every 2 to 3 days. If you do not have a bowel movement for 3 days, call your doctor or health director day care center. Too much acetaminophen can be very dangerous. Do not take Tylenol (acetaminophen) or medicines that contain acetaminophen with this medicine. Many non-prescription medicines contain acetaminophen. Always read the labels carefully. You have been given the following additional information: Fracture, Ankle (General) Crutch Walking Splint Care, Fiberglass Hydrocodone Bitartrate, Acetaminophen Oral tablet No weight bearing left leg until released. Do not work until released. (Electronically signed by Sukh Dominguez Dr. 09/28/2016 9:42)
--- NOTE | 2016-09-28 10:07 | ED MED RECONCILIATION SUMMARY ---
Patient: FINESSE ROCHEOLFO Medication Reconciliation Report [facility] VisitID: [id number] [address] [place] [address] 31y, M Registration Date/Time: 09/28/2016 Weight: 86.1 kg Height/Length: 69 in. BMI: 28.1 ALLERGIES: No Known Drug Allergy The patient's Home Medications are listed below: NONE. The source(s) of the original Home Medication information: patient The following Medications were given to the patient in the Emergency Department: Motrin [PO] PO 800 mg, administered: 09/28/2016 8:42:00 AM The following Medications were prescribed to the patient: Hydrocodone/APAP 5mg / 325mg: take 1 orally every 6 hours as needed for pain. Dispense twenty (20). No refill. -- Sukh Dominguez Dr.
--- NOTE | 2016-09-28 10:07 | ED MAR SUMMARY ---
..... Medication Administration Record [facility] [address] [place] [address] Patient: COSMO ROCHE Visit ID: [id number] 31y, M Weight: 86.1 kg Height/Length: 69 in BMI: 28.1 ALLERGIES: No Known Drug Allergy Given 08:42 09/28/2016 Scott Mayo R.N. Medication Administered: MOTRIN [PO], Dose: 800 mg PO. Medication Ordered: Motrin PO 800 mg (NOW).
--- NOTE | 2016-09-28 10:07 | ED MED RECONCILIATION SUMMARY ---
Patient: FINESSE ROCHEOLFO Medication Reconciliation Report [facility] VisitID: [id number] [address] [place] [address] 31y, M Registration Date/Time: 09/28/2016 Weight: 86.1 kg Height/Length: 69 in. BMI: 28.1 ALLERGIES: No Known Drug Allergy The patient's Home Medications are listed below: NONE. The source(s) of the original Home Medication information: patient The following Medications were given to the patient in the Emergency Department: Motrin [PO] PO 800 mg, administered: 09/28/2016 8:42:00 AM The following Medications were prescribed to the patient: Hydrocodone/APAP 5mg / 325mg: take 1 orally every 6 hours as needed for pain. Dispense twenty (20). No refill. -- Sukh Dominguez Dr.
== END 2016-09-28 10:05 | disposition home or self-care (01) ==
LOC: ED SRH 08:10
DX: S82.52XA Displaced fracture of medial malleolus of left tibia, initial encounter for closed fracture (principal); V03.90XA Pedestrian on foot injured in collision with car, pick-up truck or van, unspecified whether traffic or nontraffic accident, initial encounter; Y93.89 Activity, other specified; Y92.89 Other specified places as the place of occurrence of the external cause